=== PATIENT | female | born 1980 | race Caucasian/White ===

== ENCOUNTER 2017-07-05 08:46 | Emergency (ER) | payer BC, MEDICAID ==
[~2017-07-05] VITALS: Ht 157.5 cm; Wt 81.0 kg
[~2017-07-05 08:46] MED LIST: ALBU18HF2 INH; AZIT250T PO; LEVA15HF4 IH; MULT-1179 PO; NO HOME MEDS
[2017-07-05] MEDS ORDERED: normal saline 1000ML IV soln IVB ONE (09:45)
[2017-07-05] MEDS ORDERED: ondansetron/PF 4mg/2ml inj IV ONE (09:45)
[2017-07-05 10:12] LABS: BASOPHILS # (AUTO) 0.1 X10'3 (0-0.2); BASOPHILS % (AUTO) 1.4 % (0-1); EOSINOPHILS # (AUTO) 0.2 X10'3 (0-0.9); HEMATOCRIT 40.3 % (35.0-45.0); HEMOGLOBIN 14.2 g/dl (12.0-16.0); LYMPHOCYTES # (AUTO) 2.2 X10'3 (1.1-4.8); LYMPHOCYTES % (AUTO) 30.2 % (21-51); MEAN CORPUSCULAR HEMOGLOBIN 32.5 PG (27.0-31.0); MEAN CORPUSCULAR HGB CONC 35.2 % (33.0-36.5); MEAN CORPUSCULAR VOLUME 92.4 FL (78-98); MEAN PLATELET VOLUME 8.8 FL (7.4-10.4); MONOCYTES # (AUTO) 0.3 X10'3 (0-0.9); MONOCYTES % (AUTO) 3.9 % (2-12); NEUTROPHILS # (AUTO) 4.4 X10'3 (1.8-7.7); NEUTROPHILS % (AUTO) 61.5 % (42-75); PLATELET COUNT 188 X10'3 (140-440); RED BLOOD COUNT 4.36 X10'6 (4.20-5.60); RED CELL DISTRIBUTION WIDTH 12.3 % (11.5-14.5); WHITE BLOOD COUNT 7.2 X10'3 (4.5-11.0)
[2017-07-05] MEDS ORDERED: dexamethasone sod phosphate 10mg/ml inj IM STA (10:19)
[2017-07-05] MEDS ORDERED: SUMAtriptan succ. 6 MG/0.5ml vial SQ ONE (10:20)
[2017-07-05] MEDS ORDERED: ketorolac trometh. 30mg/ml inj. IV ONE (10:20)
[2017-07-05] MEDS ORDERED: metoclopramide 5 mg/ml inj IV ONE (10:20)
[2017-07-05] MEDS ORDERED: LORazepam 2 mg/ml vial IV ONE (10:20)
[2017-07-05 10:28] LABS: ALANINE AMINOTRANSFERASE 19 U/L (12-78); ALBUMIN 3.7 G/DL (3.4-5.0); ALBUMIN/GLOBULIN RATIO 1.1 (1.1-1.5); ALKALINE PHOSPHATASE 76 IU/L (46-116); ANION GAP 11 (8-16); ASPARTATE AMINO TRANSFERASE 26 U/L (10-37); BILIRUBIN,TOTAL 0.5 MG/DL (0.1-1.0); BLOOD UREA NITROGEN 10 MG/DL (7-18); BUN/CREATININE RATIO 15.4 (6.6-38.0); CALCIUM 8.8 MG/DL (8.5-10.1); CHLORIDE 105 MMOL/L (99-107); CREATININE 0.65 MG/DL (0.40-0.90); GLUCOSE 85 MG/DL (70-104); POTASSIUM 3.8 MMOL/L (3.5-5.1); SODIUM 140 MMOL/L (135-145); TOTAL CARBON DIOXIDE 24.3 MMOL/L (24-32); eGFR > 90 ML/MIN
[2017-07-05 11:06] VITALS: BP 152/81
== END 2017-07-05 11:07 | disposition home or self-care (01) ==
LOC: ER 08:47
DX: G43.909 Migraine, unspecified, not intractable, without status migrainosus (principal); J45.909 Unspecified asthma, uncomplicated; Z90.710 Acquired absence of both cervix and uterus; Z88.0 Allergy status to penicillin; Z88.8 Allergy status to other drugs, medicaments and biological substances; Z79.899 Other long term (current) drug therapy
CPT/HCPCS: 36415; 70450; 80053; 85025; 85610; 96361; 96372; 96374; 96375; 99285; J1100; J1885; J2060; J2405; J2765; J3030; J7030

== ENCOUNTER 2018-12-21 01:14 | Emergency (ER) | payer BC, MEDICAID ==
[~2018-12-21] VITALS: Ht 154.9 cm; Wt 79.5 kg
[2018-12-21 01:52] LABS: BASOPHILS # (AUTO) 0.1 X10'3 (0-0.2); BASOPHILS % (AUTO) 0.7 % (0-1); EOSINOPHILS # (AUTO) 0.2 X10'3 (0-0.9); EOSINOPHILS % (AUTO) 2.6 % (0-6); HEMOGLOBIN 13.7 g/dl (12.0-16.0); LYMPHOCYTES # (AUTO) 1.8 X10'3 (1.1-4.8); LYMPHOCYTES % (AUTO) 22.7 % (21-51); MEAN CORPUSCULAR HEMOGLOBIN 33.3 PG (27.0-31.0); MEAN CORPUSCULAR HGB CONC 35.1 g/dL (33.0-36.5); MEAN CORPUSCULAR VOLUME 94.8 FL (78-98); MONOCYTES # (AUTO) 0.3 X10'3 (0-0.9); MONOCYTES % (AUTO) 3.6 % (2-12); NEUTROPHILS # (AUTO) 5.6 X10'3 (1.8-7.7); NEUTROPHILS % (AUTO) 70.4 % (42-75); PLATELET COUNT 156 X10'3 (140-440); RED BLOOD COUNT 4.11 X10'6 (4.20-5.60); RED CELL DISTRIBUTION WIDTH 12.7 % (11.5-14.5)
[2018-12-21 01:52] LABS: CLARITY,URINE CLEAR (Clear); COLOR,URINE YELLOW (Yellow); GLUCOSE, URINE NEGATIVE (Neg); KETONES,URINE NEGATIVE (Neg); LEUKOCYTE ESTERASE ,URINE NEGATIVE (Neg); NITRITES, URINE NEGATIVE (Neg); OCCULT BLOOD,URINE NEGATIVE (Neg); PROTEIN,URINE NEGATIVE (Neg); UA COLLECTION TYPE CLN CATCH MIDSTREAM; UROBILINOGEN,URINE 0.2 E.U/dL (0.2-1.0)
[2018-12-21 02:08] LABS: ALANINE AMINOTRANSFERASE 23 U/L (12-78); ALBUMIN 3.5 G/DL (3.4-5.0); ALBUMIN/GLOBULIN RATIO 0.9 (1.1-1.5); ALKALINE PHOSPHATASE 85 IU/L (46-116); ANION GAP 9 (8-16); ASPARTATE AMINO TRANSFERASE 25 U/L (10-37); BILIRUBIN,TOTAL 0.3 MG/DL (0.1-1.0); BLOOD UREA NITROGEN 9 MG/DL (7-18); CALCIUM 9.7 MG/DL (8.5-10.1); CHLORIDE 104 MMOL/L (99-107); CREATININE 0.82 MG/DL (0.40-0.90); GLUCOSE 126 MG/DL (70-104); POTASSIUM 3.3 MMOL/L (3.5-5.1); SODIUM 142 MMOL/L (135-145); TOTAL CARBON DIOXIDE 29.2 MMOL/L (24-32); TOTAL PROTEIN 7.3 G/DL (6.4-8.2); eGFR 78 ML/MIN
[2018-12-21] MEDS ORDERED: ketorolac trometh. 30mg/ml inj. IV ONE (02:50)
[2018-12-21] MEDS ORDERED: ondansetron/PF 4mg/2ml inj IV ONE ×2 (02:50→06:00)
[2018-12-21] MEDS ORDERED: normal saline 1000ML IV soln IVB ONE (02:50)
[2018-12-21] MEDS ORDERED: LORazepam 2 mg/ml vial IV ONE (04:50)
[2018-12-21] MEDS ORDERED: fentaNYL/PF 50MCG/1 ML 2ML syringe IV ONE ×2 (04:50→06:00)
--- NOTE | 2018-12-21 04:55 | NUR ---
CALLED FREDDY AMAYA DENIDED TRANSFER DUE TO DEVERION
--- NOTE | 2018-12-21 04:56 | NUR ---
CALLED CEZAR AMAYA AT 4:54 WAITING LINSEED OIL TEMPERER BACK
--- NOTE | 2018-12-21 05:10 | NUR ---
CEZAR CALLED BACK AT 5:10 AND DECLINED WITH NO BEDS
--- NOTE | 2018-12-21 05:26 | NUR ---
CALLED CAITLIN PARTIDA TRANSFER CNT AT 5:23. AWIATING CALL BACK
--- NOTE | 2018-12-21 06:10 | NUR ---
Lara PARTIDA CALLED BACK AT 0610 WAITING FOR ROOM TO TRANSFER
--- NOTE | 2018-12-21 09:38 | NUR ---
CALL TO [facility], NO BEDS AVAILABLE AT THIS TIME.
--- NOTE | 2018-12-21 09:58 | NUR ---
PT ATTEMPTING TO SLEEP. IN NO OBVIOUS DISTRESS. STILL WAITING ON A BED AT [facility].
--- NOTE | 2018-12-21 11:16 | NUR ---
SPOKE WITH MD BAILEY AND ASKED IF I COULD ORDER THE PT A TRAY OF FOOD AND SHE SAID YES. REGULAR DIET HAS BEEN ORDERED FOR PT.
[2018-12-21] MEDS ORDERED: LEVO750T21 PO (12:46)
[2018-12-21] MEDS ORDERED: BENZ-16 PO (12:46)
[2018-12-21] MEDS ORDERED: LEVA15HF4 INH (12:50)
[2018-12-21] MEDS ORDERED: ALBU18HF2 INH (12:50)
[2018-12-21] MEDS: fentaNYL/PF 50MCG/1 ML 2ML syringe IV PRN ×2 (15:25→22:17)
[2018-12-21] MEDS: ondansetron 4mg rapidly disintigrating tab PO PRN ×2 (15:28→22:16)
[2018-12-21] MEDS: LORazepam 1 MG tablet PO PRN (15:28)
--- NOTE | 2018-12-21 15:30 | NUR ---
PT RECEIVED FENTANYL, ATIVAN, AND ZOFRAN FOR PAIN ANXIETY AND NAUSEA. PTS SISTER AT BS.
--- NOTE | 2018-12-21 16:00 | NUR ---
MONALISA ASKED TO PLACE CALL TO D RE: PT BED. THEY STATED STILL NO BEDS OPEN AT THIS TIME. PT AND SISTER NOTIFED
--- NOTE | 2018-12-21 17:01 | NUR ---
PT RESTING ON LEFT SIDE RR EQUAL AND ULABORED.
--- NOTE | 2018-12-21 18:45 | NUR ---
WOKE PATIENT UP FOR ASSESSMENT. PATIENT C/O RIGHT ABDOMINAL BLOATING, SOME PRESSURE, BUT MILD PAIN, REFUSED PAIN MEDICATION
--- NOTE | 2018-12-21 21:00 | NUR ---
PATIENT APPEARS TO BE SLEEPING, EYES CLOSED RR EVEN AND UNLABORED. ON RIGHT SIDE.
[2018-12-21] MEDS ORDERED: HYDROcodone/acetaminophen 10/325mg tab PO PRN (21:45)
--- NOTE | 2018-12-21 22:10 | NUR ---
PATIENT WOKE UP FROM APPARENT SLEEP IN SEVERE RIGHT QUADRANT ABDOMINAL PAIN. GUARDING RIGHT ABDOMEN. DISCUSSED WITH DR MARTIN, ORDERS RECEIVED. PATIENT AMBUALTED TO RESTROOM WITH MODERATE ASSIST. PATIENT'S PAIN INCREASED WITH AMBULATING TO BATHROOM TO "BEYOND" SEVERE. IN BATHROOM CHANGED GOWN, PLACED HOSPITAL PANTS, PERICARE DONE SELF. WHEELCHAIR BACK TO ROOM. TRANSFERING PATIENT FROM TO BED: GAURDING ABDOMEN, GRIMACING IN PAIN, AND GASPING WITH TRANSFER TO BED. ADDITIONAL PAIN MEDS TO BE GIVEN/AND ASKED FOR
[2018-12-21] MEDS ORDERED: fentaNYL 10MCG/ML in NS 50ML 50 ML IV SCH (23:00)
[2018-12-21] MEDS ORDERED: HYDROmorphone/NS 1 mg/ml CADD 50 ML IV SCH (23:10)
--- NOTE | 2018-12-22 00:12 | NUR ---
PATIENT APPEARS TO BE SLEEPING: RR EVEN AND UNLABORED ON BACK WITH HOB 30 DEGREES, SPO2 97
[2018-12-22] MEDS ORDERED: CADD PCA waste documentation MC PRN (00:40)
[2018-12-22] MEDS ORDERED: HYDROmorphone/NS 1 mg/ml CADD 50 ML IV SCH (00:40)
[2018-12-22] MEDS ORDERED: naloxone 0.4 mg/ml inj IV PRN (00:40)
[2018-12-22] MEDS: HYDROmorphone/NS 1 mg/ml CADD 50 ML IV SCH ×13 (00:53→23:56)
[2018-12-22] MEDS ORDERED: normal saline 1000ml 1,000 ML IV SCH (01:12)
--- NOTE | 2018-12-22 02:50 | NUR ---
PATIENT MOVED TO ROOM 12 IN THE MAIN ER VIA WC PER SHOWER DOORS AND PANELS FABRICATOR PATTY. BEDSIDE REPORT TO JANIE KEYS. PATIENT AXOX4, CASTILLO. PATIENT WITH RIGHT WRIST PIV WITH NS @ 20 ML/HR AND DILAUDID GAS FLOW REGULATOR 1MG/1ML DEMAND DOSE OF 0.2 MG EVERY 10 MINUTES NEEDED FOR ABDOMINAL PAIN, NO BASAL RATE.
--- NOTE | 2018-12-22 02:51 | NUR ---
IN ER ROOM 12 PATIENT PLACED IN HOSPITAL BED, PLACED ON 5 LEAD, BP CUFF AND SPO2 MONITORING. PATIENT WITH CALL LIGHT AND DILAUDID NUCLEAR CONTROL OPERATOR BUTTON IN REACH.
--- NOTE | 2018-12-22 03:27 | NUR ---
PLACED ON 2 LITERS NC SATS DROPPING TO 90 WHEN SLEEPING.
--- NOTE | 2018-12-22 03:55 | NUR ---
PT SATS AT 97% W/ 2 L O2, REPORTS PAIN 3/10.
--- NOTE | 2018-12-22 06:30 | NUR ---
pt resting comfortably in bed, no s/s of resp. distress at this time.
--- NOTE | 2018-12-22 07:30 | NUR ---
reid horner advises that [facility] called to say that there is still no bed available at this time.
--- NOTE | 2018-12-22 09:50 | NUR ---
no needs at this time, pt resting on her left side.
--- NOTE | 2018-12-22 10:24 | NUR ---
ASSUMED CARE OF PT SPOKE W PT SHE IS AWAKE AND STABLE VSS, CADD PUMP ON DEMAND ONLY, 0.20 MG AVAIL Q 10 MINS, SHE JUST HIT HER BUTTON
--- NOTE | 2018-12-22 11:30 | NUR ---
PT IS UP USING COMMODE, STABLE , ASSISTED BACK TO BED
--- NOTE | 2018-12-22 12:30 | NUR ---
PT ASKING WHAT THE PLAN IS, TOLD HER SHE WILL BE HOLDONG IN er UNTIL [facility] HAS A BED, SPOKE TO CHARGE RE BED UPSTAIRS
--- NOTE | 2018-12-22 13:30 | NUR ---
PT IS SITTING UP IN BED EATTING HER LUNCH, SHE HAS A QUEST, STABLE,
--- NOTE | 2018-12-22 14:24 | NUR ---
relieving RN for break, pt is sitting on edge of bed eating lunch, chilo well, no n/v, waiting for room assignment
--- NOTE | 2018-12-22 15:27 | NUR ---
dr Ramirez in talking to pt re diag and plan, pt is reasured, has nausea, provider to put in order for zofran IV
[2018-12-22] MEDS: ondansetron 4mg rapidly disintigrating tab PO PRN (16:24)
[2018-12-22] MEDS: ondansetron/PF 4mg/2ml inj IV PRN ×2 (17:05→23:25)
--- NOTE | 2018-12-22 19:29 | NUR ---
ASSUMING CARE OF PT FROM JANIE GALLOWAY DAY SHIFT. PER HER REPORT,PTS PAIN HAS BEEN WELL CONTROLLED ON THE DILAUDID CADD. SHE IS STILL AWAITING ACCEPTANCE TO ANOTHER FACILITY FOR ONCOLOGY CARE. DR. BAILEY UPDATED THAT PTS LABS WERE LAST DRAWN 1.5 DAYS AGO WHEN SHE FIRST ARRIVED IN ER AND THAT K 3.3. VERBAL RECEIVED FOR REDRAW OF CBC, CMP, COAGS. Addendum: 12/22/18 at 2031 by MARISOL CORRECTION: PT HAS PLACEMENT AT [facility] AND IS ACCEPTED BUT NO ROOMS ARE AVAILABLE. DR. BAILEY TALKING WITH [facility] ALSO.
--- NOTE | 2018-12-22 19:55 | NUR ---
pt had gotten up to commode, excruciating pain now. I pushed her TAX FORM PREPARER pump for her, she asked for something warm to her abd. I am having the tech make a warm pack for her to place on the area.
[2018-12-22 20:12] LABS: BASOPHILS % (AUTO) 0.6 % (0-1); EOSINOPHILS # (AUTO) 0.2 X10'3 (0-0.9); EOSINOPHILS % (AUTO) 3.2 % (0-6); HEMATOCRIT 35.2 % (35.0-45.0); HEMOGLOBIN 12.6 g/dl (12.0-16.0); LYMPHOCYTES # (AUTO) 1.8 X10'3 (1.1-4.8); LYMPHOCYTES % (AUTO) 26.5 % (21-51); MEAN CORPUSCULAR HEMOGLOBIN 33.6 PG (27.0-31.0); MEAN CORPUSCULAR HGB CONC 35.7 g/dL (33.0-36.5); MEAN CORPUSCULAR VOLUME 94.2 FL (78-98); MEAN PLATELET VOLUME 8.5 FL (7.4-10.4); MONOCYTES # (AUTO) 0.3 X10'3 (0-0.9); MONOCYTES % (AUTO) 5.1 % (2-12); NEUTROPHILS # (AUTO) 4.3 X10'3 (1.8-7.7); NEUTROPHILS % (AUTO) 64.6 % (42-75); PARTIAL THROMBOPLASTIN TIME 26 SECONDS (22-32); PLATELET COUNT 142 X10'3 (140-440); RED BLOOD COUNT 3.74 X10'6 (4.20-5.60); RED CELL DISTRIBUTION WIDTH 12.7 % (11.5-14.5); WHITE BLOOD COUNT 6.6 X10'3 (4.5-11.0)
[2018-12-22 20:14] LABS: ALANINE AMINOTRANSFERASE 17 U/L (12-78); ALKALINE PHOSPHATASE 64 IU/L (46-116); ANION GAP 6 (8-16); ASPARTATE AMINO TRANSFERASE 19 U/L (10-37); BILIRUBIN,TOTAL 0.5 MG/DL (0.1-1.0); BLOOD UREA NITROGEN 7 MG/DL (7-18); BUN/CREATININE RATIO 9.9 (6.6-38.0); CALCIUM 8.1 MG/DL (8.5-10.1); CHLORIDE 105 MMOL/L (99-107); CREATININE 0.71 MG/DL (0.40-0.90); GLUCOSE 93 MG/DL (70-104); POTASSIUM 3.4 MMOL/L (3.5-5.1); SODIUM 139 MMOL/L (135-145); TOTAL CARBON DIOXIDE 27.8 MMOL/L (24-32); eGFR > 90 ML/MIN
--- NOTE | 2018-12-22 20:47 | NUR ---
[facility] RN CALLING FOR SCREENING INFORMATION.
[2018-12-22 22:00] VITALS: BP 120/85
--- NOTE | 2018-12-22 23:15 | NUR ---
PT UPDATED OF ACCEPTANCE TO [facility] . CURRENT VSS. REPROTS SOME MILD PAIN AND INCREASED PAIN WITH ANY MOVEMENT. CONTINUES ON DILAUDID CADD.
[2018-12-22] MEDS: LORazepam 1 MG tablet PO PRN (23:22)
--- NOTE | 2018-12-22 23:25 | NUR ---
given ativan 1 mg tab and zofran 4 mg iv. pt reports some anxiety about transfer but also relief.
--- NOTE | 2018-12-22 23:58 | NUR ---
REPORT TO REACH FLIGHT NURSE. FLIGHT CREW HERE TO TRANSPORT TO [facility]. REPORT CALLED TO [facility], JANIE DIAS (UNIT A6 ROOM 13). PT WITH STABLE VS.
--- NOTE | 2018-12-27 19:14 | NUR ---
CALLED SPOKE WITH PT AND INSTRUCTED HER TO FOLLOW UP WITH PCP REGARDING ABNORMAL CANCER MARKER TEST PER MD ORDER.
== END 2018-12-23 00:21 | disposition short-term general hospital (02) ==
LOC: ER 01:14
DX: N83.9 Noninflammatory disorder of ovary, fallopian tube and broad ligament, unspecified (principal); J45.909 Unspecified asthma, uncomplicated; Z85.42 Personal history of malignant neoplasm of other parts of uterus; Z90.710 Acquired absence of both cervix and uterus; Z88.0 Allergy status to penicillin; Z79.2 Long term (current) use of antibiotics; Z79.899 Other long term (current) drug therapy
CPT/HCPCS: 36415; 74176; 80053; 81003; 82378; 85025; 85610; 85730; 86304; 96361; 96374; 96375; 96376; 99285; J1170; J1885; J2060; J2405; J3010; J7030

== ENCOUNTER 2020-07-04 21:20 | Emergency (ER) | payer BC, MEDICAID ==
[~2020-07-04] VITALS: Ht 157.5 cm; Wt 67.4 kg
[~2020-07-04 21:20] MED LIST changes: -AZIT250T PO; +BENZ-16 PO; -LEVA15HF4 IH; +LEVA15HF4 INH; +LEVO750T21 PO; -MULT-1179 PO; -NO HOME MEDS
--- NOTE | 2020-07-04 22:25 | NUR ---
Dr. Galo at bedside.
[2020-07-04] MEDS ORDERED: ibuprofen tablet 400 MG TABLET PO ONE (22:30)
[2020-07-04 23:29] VITALS: BP 115/65
== END 2020-07-04 23:31 | disposition home or self-care (01) ==
LOC: ER 21:21
DX: S70.02XA Contusion of left hip, initial encounter (principal); S90.32XA Contusion of left foot, initial encounter; S80.02XA Contusion of left knee, initial encounter; J45.909 Unspecified asthma, uncomplicated; Z90.710 Acquired absence of both cervix and uterus; Z88.0 Allergy status to penicillin; Z88.1 Allergy status to other antibiotic agents; Z79.899 Other long term (current) drug therapy; W11.XXXA Fall on and from ladder, initial encounter; Y93.89 Activity, other specified; Y92.89 Other specified places as the place of occurrence of the external cause; Y99.8 Other external cause status
CPT/HCPCS: 73502; 73630; 99284

== ENCOUNTER 2020-12-04 21:36 | Emergency (ER) | payer MEDICAID ==
[~2020-12-04] VITALS: Ht 157.5 cm; Wt 66.2 kg
== END 2020-12-05 00:20 | disposition left against medical advice (07) ==
LOC: ER 21:37
DX: S61.216A Laceration without foreign body of right little finger without damage to nail, initial encounter (principal); Z53.21 Procedure and treatment not carried out due to patient leaving prior to being seen by health care provider; X58.XXXA Exposure to other specified factors, initial encounter; Y93.9 Activity, unspecified; Y92.9 Unspecified place or not applicable; Y99.9 Unspecified external cause status

== ENCOUNTER 2021-01-21 09:55 | Emergency (ER) | payer MEDICAID ==
[~2021-01-21] VITALS: Ht 157.5 cm; Wt 64.5 kg
[2021-01-21 10:23] VITALS: BP 106/78
[2021-01-21] MEDS ORDERED: DOXY100C43 PO (13:09)
[2021-01-21] MEDS ORDERED: ALBU8.5H17 IH (13:13)
== END 2021-01-21 13:21 | disposition home or self-care (01) ==
LOC: ER 09:57
DX: J40 Bronchitis, not specified as acute or chronic (principal); Z20.822 Contact with and (suspected) exposure to COVID-19; R07.89 Other chest pain; R50.9 Fever, unspecified; R51.9 Headache, unspecified; Z85.9 Personal history of malignant neoplasm, unspecified; Z90.710 Acquired absence of both cervix and uterus; Z88.0 Allergy status to penicillin; Z88.1 Allergy status to other antibiotic agents; Z79.899 Other long term (current) drug therapy
CPT/HCPCS: 71045; 87635; 99284; C9803

== ENCOUNTER 2021-05-05 09:57 | Emergency (ER) | payer MEDICAID ==
[~2021-05-05] VITALS: Ht 157.5 cm; Wt 65.0 kg
[~2021-05-05 09:57] MED LIST changes: +ALBU8.5H17 IH
[2021-05-05 10:47] LABS: BASOPHILS % (AUTO) 0.5 % (0-1); EOSINOPHILS # (AUTO) 0.3 X10'3 (0-0.9); EOSINOPHILS % (AUTO) 5.1 % (0-6); HEMOGLOBIN 15.4 g/dl (12.0-16.0); LYMPHOCYTES % (AUTO) 38.8 % (21-51); MEAN CORPUSCULAR HEMOGLOBIN 32.3 PG (27.0-31.0); MEAN CORPUSCULAR HGB CONC 34.3 g/dL (33.0-36.5); MEAN CORPUSCULAR VOLUME 94.4 FL (78-98); MONOCYTES # (AUTO) 0.2 X10'3 (0-0.9); MONOCYTES % (AUTO) 4.7 % (2-12); NEUTROPHILS # (AUTO) 2.7 X10'3 (1.8-7.7); NEUTROPHILS % (AUTO) 50.9 % (42-75); PLATELET COUNT 218 X10'3 (140-440); RED BLOOD COUNT 4.77 X10'6 (4.20-5.60); RED CELL DISTRIBUTION WIDTH 11.8 % (11.5-14.5); WHITE BLOOD COUNT 5.2 X10'3 (4.5-11.0)
[2021-05-05 11:04] LABS: ANION GAP 14 (8-16); BILIRUBIN,TOTAL 0.4 MG/DL (0.1-1.0); BLOOD UREA NITROGEN 7 MG/DL (7-18); BUN/CREATININE RATIO 12.1 (6.6-38.0); CALCIUM 8.9 MG/DL (8.5-10.1); CHLORIDE 106 MMOL/L (99-107); CREATININE 0.58 MG/DL (0.40-0.90); GLUCOSE 101 MG/DL (70-104); POTASSIUM 3.8 MMOL/L (3.5-5.1); SODIUM 142 MMOL/L (135-145); TOTAL CARBON DIOXIDE 22.2 MMOL/L (24-32); eGFR > 90 ML/MIN
[2021-05-05 11:05] LABS: ALANINE AMINOTRANSFERASE 11 U/L (12-78); ALBUMIN 4.1 G/DL (3.4-5.0); ALBUMIN/GLOBULIN RATIO 1.6 (1.1-1.5); ASPARTATE AMINO TRANSFERASE 26 U/L (10-37); TOTAL PROTEIN 6.7 G/DL (6.4-8.2)
[2021-05-05 11:05] LABS: CLARITY,URINE SLIGHTLY CLOUDY (Clear); GLUCOSE, URINE NEGATIVE (Neg); KETONES,URINE NEGATIVE (Neg); LEUKOCYTE ESTERASE ,URINE NEGATIVE (Neg); NITRITES, URINE NEGATIVE (Neg); OCCULT BLOOD,URINE NEGATIVE (Neg); PROTEIN,URINE NEGATIVE (Neg); UROBILINOGEN,URINE 0.2 E.U/dL (0.2-1.0)
[2021-05-05 11:06] LABS: COLOR,URINE STRAW (Yellow); UA COLLECTION TYPE CLN CATCH MIDSTREAM
[2021-05-05 11:12] LABS: BACTERIA,URINE 1+ /HPF (Neg); RBC,URINE NONE SEEN /HPF (0-2); SQUAMOUS EPITHELIAL CELL,UR MODERATE /LPF (FEW); WBC,URINE 0-4 /HPF (0-4)
[2021-05-05] MEDS ORDERED: ondansetron/PF 4mg/2ml inj IV ONE (14:10)
[2021-05-05] MEDS ORDERED: morphine 4 MG/ML inj SYRINge IV PRN (14:10)
[2021-05-05] MEDS ORDERED: iohexol 300mg/ml 100ml inj. ONE (14:13)
[2021-05-05] MEDS ORDERED: HYDR-3965 PO (15:08)
[2021-05-05 15:26] VITALS: BP 116/81
== END 2021-05-05 15:28 | disposition home or self-care (01) ==
LOC: ER 09:58
DX: R10.32 Left lower quadrant pain (principal); R19.7 Diarrhea, unspecified; R63.0 Anorexia; J45.909 Unspecified asthma, uncomplicated; Z85.41 Personal history of malignant neoplasm of cervix uteri; Z85.43 Personal history of malignant neoplasm of ovary; Z90.710 Acquired absence of both cervix and uterus; Z98.890 Other specified postprocedural states; Z88.0 Allergy status to penicillin; Z88.1 Allergy status to other antibiotic agents; Z79.899 Other long term (current) drug therapy
CPT/HCPCS: 36415; 74177; 80053; 81001; 85025; 96374; 96375; 99285; J2270; J2405; Q9967